=== PATIENT | female | born 1990 | race Caucasian/White ===

== ENCOUNTER 2023-05-03 21:13 | Emergency (ER) | payer OTHER, SELFPAY ==
[2023-05-03 21:15] VITALS: BP 171/102; PULSE 112; RESP 22; TEMP 36.8; O2SAT 98; BMI 62.0
--- NOTE | 2023-05-03 21:34 | XR_ITS ---
[address] [address] Patient Name: SRI SPENCER MRN: [id number] date: 1990 Sex: F Assigned Patient Location: ER Current Patient Location: ED.MAIN Accession/Order Number: [id number] Exam Date: 05/03/2023 21:48 Report Date: 05/03/2023 22:36 At the request of: AKASH ADLER Procedure: XR chest 2V EXAMINATION: CHEST RADIOGRAPH (2 VIEW AP/LATERAL) Exam Date/Time: 05/03/2023 9:48 PM EDT Clinical History: cough Comparison: Chest radiograph 10/18/2022 FINDINGS: Lines, tubes, and devices: None. Cardiomediastinal silhouette: Heart size within normal limits. Lungs and pleura: No focal consolidation, pleural effusion or pneumothorax. Bibasilar atelectasis. IMPRESSION: No acute cardiopulmonary process. Electronically authenticated by: BETY MCCARTY Date: 05/03/2023 22:36
--- NOTE | 2023-05-03 21:37 | ED.URI1 ---
HPI - URI/Sore Throat General Chief Complaint: Upper Respiratory Infection Stated Complaint: WHEEZING-NO ASTHMA Time Seen by Provider: 05/03/23 21:30 Source: patient Limitations: no limitations History of Present Illness HPI Narrative: daily smoker. States she started wheezing about 3 days ago. Cough productive of green phlegm. No fever. mild dyspnea. No associated nausea or vomiting . denies past history of asthma or COPD. Does have history of HTN but does not take any medication for her BP. no headache or dizziness. Does have a stuffy nose MD elicited complaint: Reports cough Onset (ago): day(s) Related Data Home Medications Medication Instructions Recorded Confirmed No Known Home Medications 05/03/23 05/03/23 Allergies Allergy/AdvReac Type Severity Reaction Status Date / Time No Known Drug Allergies Allergy Verified 05/03/23 21:22 Review of Systems ROS Status of ROS 10 or more systems reviewed and unremarkable except as noted in history and below PFSH PFSH Social History Smoking status: Current every day smoker Exam Constitutional Vital Signs, click to edit/add: Last Vital Signs Temp 98.3 F 05/03/23 21:15 Pulse 95 H 05/03/23 22:05 Resp 18 05/03/23 22:55 BP 142/81 H 05/03/23 22:55 Pulse Ox 98 05/03/23 22:55 O2 Del Method Room Air 05/03/23 22:55 Common normals: no apparent distress, oriented x3, alert and well nourished Eye Common normals: EOMs intact bilaterally and conjunctivae normal Respiratory Other: mild exp wheeze . good air movement Cardio Common normals: regular rate, regular rhythm, S1 normal heart sound and S2 normal heart sound GI Common normals: non-tender Extremity Common normals: normal to inspection and full ROM Neuro Common normals: oriented x3, CN's II-XII intact bilaterally, moves all extremities, no focal motor deficits and no sensory deficits noted Psych Appearance: grossly normal Course Vital Signs Vital signs: Vital Signs Temperature 98.3 F 05/03/23 21:15 Pulse Rate 112 H 05/03/23 21:15 Respiratory Rate 22 05/03/23 21:15 Blood Pressure 171/102 H 05/03/23 21:15 Pulse Oximetry 98 05/03/23 21:15 Oxygen Delivery Method Room Air 05/03/23 21:15 Temperature 98.3 F 05/03/23 21:15 Pulse Rate 95 H 05/03/23 22:05 Respiratory Rate 18 05/03/23 22:55 Blood Pressure 142/81 H 05/03/23 22:55 Pulse Oximetry 98 05/03/23 22:55 Oxygen Delivery Method Room Air 05/03/23 22:55 MDM - URI/Sore Throat MDM Narrative Medical decision making narrative: patient is daily smoker. ill past few days with productive cough and mild wheezing. No distress. Exam with mild wheeze and good air movement. Treated with zithromax, prednisone and albuterol NMT. BP was elevated initially but corrected without intervention. Cxray clear. Discharged home with diagnosis of bronchitis/bronchospasm and is to follow up with her doctor Discharge Plan Discharge Chief Complaint: Upper Respiratory Infection Clinical Impression: Acute bronchospasm, Bronchitis Patient Disposition: Home, Self-Care Prescriptions / Home Meds: No Action No Known Home Medications Instructions: Acute Bronchitis (ED), Bronchospasm (ED) Additional Instructions: follow up with your doctor next week for recheck Stand Alone Forms: Portal Instructions Referrals: Physician,Non-Staff, MD [Primary Care Provider] - 1 week Discharge Date/Time: 05/03/23 22:56
--- NOTE | 2023-05-03 21:51 | PC.NURSE ---
Pt presents to ER for wheezing and congestion she has been experiencing for 3 days Pt states the other people in her house have also been sick like this
[2023-05-03 21:52] VITALS: O2SAT 99
[2023-05-03] MEDS: PREDNISONE 20 MG TABLET 60 MG PO (21:58)
[2023-05-03] MEDS: ALBUTEROL SULFATE 2.5 MG/3 ML VIAL NEB IH (22:03)
[2023-05-03 22:05] VITALS: PULSE 95; RESP 18; O2SAT 97
[2023-05-03 22:06] VITALS: BP 149/86; O2SAT 98
[2023-05-03 22:07] VITALS: BP 149/86
[2023-05-03 22:55] VITALS: BP 142/81; RESP 18; O2SAT 98
== END 2023-05-03 22:56 | disposition home or self-care (01) ==
PROVIDERS: Emergency Provider Internal Medicine
DX: J20.9 Acute bronchitis, unspecified (principal); F17.210 Nicotine dependence, cigarettes, uncomplicated
CPT/HCPCS: 71046; 94640; 99284